=== PATIENT | female | born 1995 ===

== ENCOUNTER 2019-06-06 05:37 | Inpatient (IN) | payer OTHER ==
[~2019-06-06 05:37] MED LIST: Citric Acid/Sodium Citrate Solution 30 ML Cup PO ONE; Oxytocin/0.9 % Sodium Chloride 30 UNIT/500 ML BAG IV SCH; Sodium Chloride 0.9% 10 ML SDV IV PRN; Sodium Chloride 0.9% 10 ML Syringe FLUSH PRN; Sodium Chloride 0.9% 2.5 ML Syringe FLUSH PRN; ceFAZolin 2 GM in Premix Bag 1 BAG IV ONE
[2019-06-06] MEDS: Lactated Ringers 1,000 ML IV SCH ×3 (06:02→07:50)
[2019-06-06] MEDS ORDERED: Citric Acid/Sodium Citrate Solution 30 ML Cup ONE (07:13)
[2019-06-06] MEDS ORDERED: ceFAZolin/Dextrose,Iso-Osmotic 2 GM/50 ML Duplex Bag IV ONE (07:26)
[2019-06-06] MEDS ORDERED: Phenylephrine 1% 10 MG/ML SDV ONE (07:29)
[2019-06-06] MEDS ORDERED: Oxytocin 10 Units/1 ML SDV ONE (07:29)
[2019-06-06] MEDS ORDERED: Ondansetron 4 MG/2 ML SDV ONE (07:29)
[2019-06-06] MEDS ORDERED: Morphine PF 10 MG/10 ML SDV ONE (07:34)
--- NOTE | 2019-06-06 07:43 | PCM.PREANE ---
Preanesthetic Assessment - Anesthesia/Transfusion/Family Hx Anesthesia History: Prior Anesthesia Without Reaction (prior c section with spinal 17 mo ago) Family History of Anesthesia Reaction: No Transfusion History: No Prior Transfusion(s) - Review of Systems General: No Symptoms Pulmonary: No Symptoms Cardiovascular: No Symptoms Gastrointestinal: No Symptoms Neurological: No Symptoms Other: Reports: None - Physical Assessment Height: 5 ft 4 in Weight: 78.018 kg ASA Class: 2 Mental Status: Alert & Oriented x3 Airway Class: Mallampati = 2 Dentition: Reports: Normal Dentition ROM/Head Extension: Full Lungs: Clear to Auscultation, Normal Respiratory Effort Cardiovascular: Regular Rate, Regular Rhythm - Lab Values: Laboratory Last Values WBC 10.29 K/uL (4.0-11.0) 06/05/19 09:25 RBC 3.74 M/uL (4.30-5.90) L 06/05/19 09:25 Hgb 11.7 g/dL (12.0-16.0) L 06/05/19 09:25 Hct 34.9 % (36.0-46.0) L 06/05/19 09:25 MCV 93.3 fL (80.0-98.0) 06/05/19 09:25 MCH 31.3 pg (27.0-32.0) 06/05/19 09:25 MCHC 33.5 g/dL (31.0-37.0) 06/05/19 09:25 RDW Std Deviation 42.7 fl (28.0-62.0) 06/05/19 09:25 RDW Coeff of Maddie 13 % (11.0-15.0) 06/05/19 09:25 Plt Count 251 K/uL (150-400) 06/05/19 09:25 MPV 9.60 fL (7.40-12.00) 06/05/19 09:25 Nucleated RBC % 0.0 /100WBC 06/05/19 09:25 Nucleated RBCs # 0 K/uL 06/05/19 09:25 Blood Type A POSITIVE 06/05/19 09:25 Antibody Screen NEGATIVE 06/05/19 09:25 - Allergies Allergies/Adverse Reactions: Allergies Allergy/AdvReac Type Severity Reaction Status Date / Time No Known Allergies Allergy Verified 05/30/19 14:22 - Anesthesia Plan Pre-Op Medication Ordered: Antacids - Acknowledgements Anesthesia Type Planned: Spinal Pt an Appropriate Candidate for the Planned Anesthesia: Yes Alternatives and Risks of Anesthesia Discussed w Pt/Guardian: Yes Pt/Guardian Understands and Agrees with Anesthesia Plan: Yes Additional Comments: PMH: none other than PLAN: spinal with intrathecal duramorph PreAnesthesia Questionnaire HEENT History: Reports: None Cardiovascular History: Reports: None Respiratory History: Reports: None Gastrointestinal History: Reports: Other (See Below) Other Gastrointestinal History: occasional heartburn with Genitourinary History: Reports: UTI, Recurrent PATTERN FITTER History: Reports: Musculoskeletal History: Reports: Fracture Other Musculoskeletal History: hx fx hip Neurological History: Reports: Concussion Psychiatric History: Reports: None Endocrine/Metabolic History: Reports: None Hematologic History: Reports: None Immunologic History: Reports: None Oncologic (Cancer) History: Reports: None Dermatologic History: Reports: None - Infectious Disease History Infectious Disease History: Reports: Chicken Pox - Past Surgical History Head Surgeries/Procedures: Reports: None HEENT Surgical History: Reports: None Cardiovascular Surgical History: Reports: None Respiratory Surgical History: Reports: None GI Surgical History: Reports: None Female Surgical History: Reports: Section Endocrine Surgical History: Reports: None Neurological Surgical History: Reports: None Musculoskeletal Surgical History: Reports: None Oncologic Surgical History: Reports: None Dermatological Surgical History: Reports: None - SUBSTANCE USE Smoking Status *Q: Never Smoker Second Hand Smoke Exposure: No Recreational Drug Use History: No - HOME MEDS Home Medications: Home Meds [place]-3S/DHA/Epa/Fish Oil [Fish Oil [place]-3 Softgel] 1 tab PO DAILY 05/30/19 [ History] PNV95/Ferrous Fumarate/FA [ Vitamin Tablet] 1 tab PO DAILY 05/30/19 [ History] - CURRENT (IN HOUSE) MEDS Current Meds: Current Medications Lactated Ringer's (Ringers, Lactated) 1,000 mls @ 500 mls/hr IV BOLUS STANLEY Last Admin: 06/06/19 07:07 Dose: 999 mls/hr Oxytocin/Sodium Chloride (Oxytocin 30 Unit/500 Ml-Ns) 30 unit in 500 mls @ 250 mls/hr IV TITRATE STANLEY Sodium Chloride (Saline Flush) 10 ml FLUSH ASDIRECTED PRN PRN Reason: Keep Vein Open Sodium Chloride (Saline Flush) 2.5 ml FLUSH ASDIRECTED PRN PRN Reason: Keep Vein Open Sodium Chloride (Normal Saline) 10 ml IV ASDIRECTED PRN PRN Reason: IV Use Discontinued Medications Cefazolin Sodium/Dextrose (Ancef) Confirm Administered Dose 2 gm IV .STK-MED ONE Stop: 06/06/19 07:27 Citric Acid/Sodium Citrate (Bicitra Solution) 30 ml PO ONETIME ONE Stop: 06/05/19 08:51 Citric Acid/Sodium Citrate (Bicitra Solution) Confirm Administered Dose 30 ml .ROUTE .STK-MED ONE Stop: 06/06/19 07:14 Cefazolin Sodium/Dextrose 2 gm (/ Premix) 50 mls @ 100 mls/hr IV ONETIME ONE Stop: 06/05/19 09:19 Morphine Sulfate (Duramorph Pf) Confirm Administered Dose 10 mg .ROUTE .STK-MED ONE Stop: 06/06/19 07:35 Ondansetron HCl (Zofran) Confirm Administered Dose 4 mg .ROUTE .STK-MED ONE Stop: 06/06/19 07:30 Oxytocin (Pitocin) Confirm Administered Dose 30 unit .ROUTE .STK-MED ONE Stop: 06/06/19 07:30 Phenylephrine HCl (Thomas-Synephrine) Confirm Administered Dose 10 mg .ROUTE .STK- MED ONE Stop: 06/06/19 07:30
[2019-06-06] MEDS ORDERED: fentaNYL 100 MCG/2 ML SDV IVPUSH PRN (07:44)
[2019-06-06] MEDS ORDERED: Acetaminophen/oxyCODONE 325-5 MG Tab PO PRN ×2 (07:44→09:12)
[2019-06-06] MEDS ORDERED: Nalbuphine 10 MG/1 ML Vial IVPUSH PRN (07:44)
[2019-06-06] MEDS ORDERED: Octyl 2-Cyanoacrylate 1 Tube ONE (09:06)
[2019-06-06] MEDS ORDERED: Lanolin 100% Cream 7 GM Tube TOP PRN (09:12)
[2019-06-06] MEDS ORDERED: diphenhydrAMINE 50 MG/ML SDV IVPUSH PRN (09:12)
[2019-06-06] MEDS ORDERED: Ondansetron 4 MG/2 ML SDV IVPUSH PRN (09:12)
[2019-06-06] MEDS ORDERED: Bisacodyl 10 MG Supp RECTAL PRN (09:12)
[2019-06-06] MEDS: Ketorolac 30 MG/ML SDV IVPUSH SCH ×4 (09:15→21:14)
[2019-06-06] MEDS ORDERED: Lactated Ringers 1,000 ML IV SCH (09:15)
--- NOTE | 2019-06-06 09:15 | PCM.LDHP ---
L&D History of Present Illness - General Date of Service: 06/06/19 Admit Problem/Dx: Patient Status Order with Admit Dx/Problem 06/05/19 08:50 Patient Status [ADT] Routine 06/06/19 09:12 Patient Status [ADT] Routine Admission Diagnosis/Problem Admission Diagnosis/Problem Source of Information: Patient History Limitations: Reports: No Limitations - History of Present Illness Improves with: Reports: None Worsens with: Reports: None Associated Symptoms: Reports: N - Related Data Allergies/Adverse Reactions: Allergies Allergy/AdvReac Type Severity Reaction Status Date / Time No Known Allergies Allergy Verified 05/30/19 14:22 Home Medications: Home Meds [place]-3S/DHA/Epa/Fish Oil [Fish Oil [place]-3 Softgel] 1 tab PO DAILY 05/30/19 [ History] PNV95/Ferrous Fumarate/FA [ Vitamin Tablet] 1 tab PO DAILY 05/30/19 [ History] Past Medical History HEENT History: Reports: None Cardiovascular History: Reports: None Respiratory History: Reports: None Gastrointestinal History: Reports: Other (See Below) Other Gastrointestinal History: occasional heartburn with Genitourinary History: Reports: UTI, Recurrent [employer]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: Musculoskeletal History: Reports: Fracture Other Musculoskeletal History: hx fx hip Neurological History: Reports: Concussion Psychiatric History: Reports: None Endocrine/Metabolic History: Reports: None Hematologic History: Reports: None Immunologic History: Reports: None Oncologic (Cancer) History: Reports: None Dermatologic History: Reports: None - Infectious Disease History Infectious Disease History: Reports: Chicken Pox - Past Surgical History Head Surgeries/Procedures: Reports: None HEENT Surgical History: Reports: None Cardiovascular Surgical History: Reports: None Respiratory Surgical History: Reports: None GI Surgical History: Reports: None Female Surgical History: Reports: Section Endocrine Surgical History: Reports: None Neurological Surgical History: Reports: None Musculoskeletal Surgical History: Reports: None Oncologic Surgical History: Reports: None Dermatological Surgical History: Reports: None Social & Family History - Family History Family Medical History: Noncontributory - Tobacco Use Smoking Status *Q: Never Smoker Second Hand Smoke Exposure: No - Caffeine Use Caffeine Use: Reports: Coffee, Energy Drinks, Soda, Tea - Recreational Drug Use Recreational Drug Use: No Drug Use in Last 12 Months: No H&P Review of Systems - Review of Systems: Review Of Systems: See Below General: Reports: No Symptoms HEENT: Reports: No Symptoms Pulmonary: Reports: No Symptoms Cardiovascular: Reports: No Symptoms Gastrointestinal: Reports: No Symptoms Genitourinary: Reports: No Symptoms Musculoskeletal: Reports: No Symptoms Skin: Reports: No Symptoms Psychiatric: Reports: No Symptoms Neurological: Reports: No Symptoms Hematologic/Lymphatic: Reports: No Symptoms Immunologic: Reports: No Symptoms L&D Exam - Exam Exam: See Below - Vital Signs Weight: 78.018 kg - OB Specific Contraction Intensity: Mild Movement: Active Heart Tones: Present Presentation: Vertex - Guillory Score Guillory Score Cervix Position: Midposition Guillory Score Consistency: Medium Guillory Score Effacement: 31-50% Guillory Score Dilation: 1-2 cm Guillory Score 's Station: -2 Guillory Score Total: 5 - Exam General: Alert, Oriented HEENT: PERRLA, Conjunctiva Clear, EACs Clear, EOMI, Hearing Intact, Mucosa Moist & [place], Nares Patent, Normal Nasal Septum, Posterior Pharynx Clear, TMs Clear Neck: Supple, Trachea Midline Lungs: Clear to Auscultation, Normal Respiratory Effort Cardiovascular: Regular Rate, Regular Rhythm GI/Abdominal Exam: Normal Bowel Sounds, Soft, Non-Tender, No Organomegaly, No Distention, No Abnormal Bruit, No Mass, Pelvis Stable Rectal Exam: Normal Exam, Normal Rectal Tone Genitourinary: Normal external exam, Normal bimanual exam, Normal speculum exam Back Exam: Normal Inspection, Full Range of Motion Extremities: Normal Inspection, Normal Range of Motion, Non-Tender, No Pedal Edema, Normal Capillary Refill Skin: Warm, Dry, Intact Neurological: Cranial Nerves Intact, Reflexes Equal Bilateral Psychiatric: Alert, Normal Affect, Normal Mood - Patient Data Lab Results Last 24 hrs: Laboratory Results - last 24 hr 06/05/19 06/05/19 Range/Units 09:25 09:25 WBC 10.29 (4.0-11.0) K/uL RBC 3.74 L (4.30-5.90) M/uL Hgb 11.7 L (12.0-16.0) g/dL Hct 34.9 L (36.0-46.0) % MCV 93.3 (80.0-98.0) fL MCH 31.3 (27.0-32.0) pg MCHC 33.5 (31.0-37.0) g/dL RDW Std Deviation 42.7 (28.0-62.0) fl RDW Coeff of Maddie 13 (11.0-15.0) % Plt Count 251 (150-400) K/uL MPV 9.60 (7.40-12.00) fL Nucleated RBC % 0.0 /100WBC Nucleated RBCs # 0 K/uL Blood Type A POSITIVE Antibody Screen NEGATIVE Result Diagrams: 06/05/19 09:25 Problem List Initiated/Reviewed/Updated: Yes Orders Last 24hrs: Active Orders 24 hr Category Date Time Status Patient Status [ADT] Routine ADT 06/06/19 09:12 Ordered Ambulate [RC] PER UNIT ROUTINE Care 06/06/19 09:12 Ordered Antiembolic Devices [RC] PER UNIT ROUTINE Care 06/06/19 09:12 Ordered Bradycardia-Neuroaxis Duramorp [RC] ROUTINE Care 06/06/19 07:43 Active Communication Order [RC] PER UNIT ROUTINE Care 06/06/19 09:12 Ordered Communication Order [RC] PER UNIT ROUTINE Care 06/06/19 09:12 Ordered Communication Order [RC] Per Unit Routine Care 06/06/19 09:12 Ordered Hypertension-Neuroaxis Duramor [RC] ROUTINE Care 06/06/19 07:43 Active Hypotension-Neuroaxis Duramorp [RC] ROUTINE Care 06/06/19 07:43 Active May Shower [RC] ASDIRECTED Care 06/06/19 09:12 Ordered Oxygen Therapy [RC] PER UNIT ROUTINE Care 06/06/19 07:44 Active Procedure Site Prep Instruct [RC] ASDIRECTED Care 06/05/19 08:50 Active RT Incentive Spirometry [RC] Q2HWA Care 06/06/19 09:12 Ordered Up ad Hazel [RC] ASDIRECTED Care 06/05/19 08:50 Active Vital Signs [RC] PER UNIT ROUTINE Care 06/05/19 08:50 Active Vital Signs [RC] PER UNIT ROUTINE Care 06/06/19 09:12 Ordered Vital Signs [RC] Q1H Care 06/06/19 07:44 Active HEMOGLOBIN/HEMATOCRIT,HH [HEME] Timed Lab 06/07/19 05:11 Ordered Acetaminophen/oxyCODONE [Percocet 325-5 MG] Med 06/06/19 07:44 Active 1 tab PO ONETIME PRN Acetaminophen/oxyCODONE [Percocet 325-5 MG] Med 06/06/19 09:12 Ordered 1 tab PO Q4H PRN Acetaminophen/oxyCODONE [Percocet 325-5 MG] Med 06/06/19 09:12 Ordered 2 tab PO Q4H PRN Bisacodyl [Dulcolax] Med 06/06/19 09:12 Ordered 10 mg RECTAL ONETIME PRN Docusate Sodium [Colace] Med 06/06/19 21:00 Ordered 100 mg PO BID Ibuprofen [Motrin] Med 06/06/19 09:12 Ordered 800 mg PO Q8H PRN Ketorolac [Toradol] Med 06/06/19 09:15 Ordered 30 mg IVPUSH Q6H Lactated Ringers @ 125 MLS/HR(1000ml) Med 06/06/19 09:15 Ordered Lactated Ringers [Ringers, Lactated] 1,000 ml IV ASDIRECTED Lactated Ringers [Ringers, Lactated] 1,000 ml Med 06/05/19 09:00 Active IV BOLUS Lanolin [Lansinoh HPA] Med 06/06/19 09:12 Ordered See Dose Instructions TOP ASDIRECTED PRN Nalbuphine [Nubain] Med 06/06/19 07:44 Active 2.5 mg IVPUSH Q3H PRN Ondansetron [Zofran] Med 06/06/19 09:12 Ordered 4 mg IVPUSH Q4H PRN Oxytocin/0.9 % Sodium Chloride [Oxytocin 30 Unit/500 ML Med 06/05/19 09:00 Active -NS] 30 unit in 500 ml IV TITRATE Sodium Chloride 0.9% [Normal Saline] Med 06/05/19 08:50 Active 10 ml IV ASDIRECTED PRN Sodium Chloride 0.9% [Saline Flush] Med 06/05/19 08:50 Active 10 ml FLUSH ASDIRECTED PRN Sodium Chloride 0.9% [Saline Flush] Med 06/05/19 08:50 Active 2.5 ml FLUSH ASDIRECTED PRN diphenhydrAMINE [Benadryl] Med 06/06/19 09:12 Ordered 25 mg IVPUSH Q6H PRN fentaNYL [Sublimaze] Med 06/06/19 07:44 Active 50 mcg IVPUSH Q5M PRN AN Neuroaxis Duramorph Precaution Reflex [OM.PC] PER Ot 06/06/19 07:45 Ordered UNIT ROUTINE AN Neuroaxis Duramorph Precaution Reflex [OM.PC] PER Ot 06/07/19 07:45 Ordered UNIT ROUTINE Assess Lochia [WOMSER] Per Unit Routine Ot 06/06/19 09:12 Ordered Assess Uterine Involution [WOMSER] Per Unit Routine Ot 06/06/19 09:12 Ordered Breast Pump [WOMSER] Per Unit Routine Ot 06/06/19 09:12 Ordered Peripheral IV Discontinue [OM.PC] Routine Ot 06/06/19 09:12 Ordered Peripheral IV Insertion Adult [OM.PC] Routine Ot 06/05/19 08:50 Ordered Schedule Procedure [COMM] Per Unit Routine Ot 06/05/19 08:50 Ordered Sequential Compression Device [OM.PC] Per Unit Routine Ot 06/06/19 09:12 Ordered Resuscitation Status Routine Resus Stat 06/05/19 08:50 Ordered Medication Orders Fentanyl (Sublimaze) 50 mcg IVPUSH Q5M PRN PRN Reason: Pain (severe 7-10) Stop: 06/07/19 07:44 Lactated Ringer's (Ringers, Lactated) 1,000 mls @ 500 mls/hr IV BOLUS STANLEY Last Admin: 06/06/19 07:50 Dose: 500 mls/hr Infusion: 06/06/19 07:50 Dose: 999 mls/hr Admin: 06/06/19 07:07 Dose: 999 mls/hr Infusion: 06/06/19 07:03 Dose: 999 mls/hr Admin: 06/06/19 06:02 Dose: 999 mls/hr Oxytocin/Sodium Chloride (Oxytocin 30 Unit/500 Ml-Ns) 30 unit in 500 mls @ 250 mls/hr IV TITRATE STANLEY Nalbuphine HCl (Nubain) 2.5 mg IVPUSH Q3H PRN PRN Reason: Pruritis Stop: 06/07/19 07:44 Oxycodone/Acetaminophen (Percocet 325-5 Mg) 1 tab PO ONETIME PRN PRN Reason: Pain (moderate 4-6) Sodium Chloride (Saline Flush) 10 ml FLUSH ASDIRECTED PRN PRN Reason: Keep Vein Open Sodium Chloride (Saline Flush) 2.5 ml FLUSH ASDIRECTED PRN PRN Reason: Keep Vein Open Sodium Chloride (Normal Saline) 10 ml IV ASDIRECTED PRN PRN Reason: IV Use Assessment/Plan Comment:: IUP39+ wks admitted for elective repeat C/section.
--- NOTE | 2019-06-06 09:17 | PCM.OPNOTE ---
- General Post-Op/Procedure Note Date of Surgery/Procedure: 06/06/19 Operative Procedure(s): Repeat C/section. Pre Op Diagnosis: IUP 39 wks previous C/section. Post-Op Diagnosis: Same Anesthesia Technique: Spinal Primary Surgeon: Randy Mendenhall EBL in mLs: 650 Complications: None Condition: Good
--- NOTE | 2019-06-06 12:29 | OR ---
SURGEON: Randy Mendenhall MD DATE OF PROCEDURE: 06/06/2019 PREOPERATIVE DIAGNOSES: Intrauterine at 39 weeks plus, previous section, admitted for elective repeat section. POSTOPERATIVE DIAGNOSES: Intrauterine at 39 weeks plus, previous section, admitted for elective repeat section. OPERATION PERFORMED: Repeat low-transverse section, PRIMARY SURGEON: Randy Mendenhall MD. WRIST HEMMER: Radha Chow. ANESTHESIA: Spinal. ESTIMATED BLOOD LOSS: 650 mL. COMPLICATIONS: None. FINDING: Male fetus, score reported to be 8 and 9. The weight is not available. INDICATION FOR SURGERY: This patient is 24-year-old. She had a previous section. She is admitted for elective repeat section. She had no complication with her care. PROCEDURE IN DETAIL: The patient was brought to the OR, properly identified, and after adequate level of spinal anesthesia with a Diez catheter in the bladder, the patient was prepped and draped in sterile fashion as usual. A low-transverse Pfannenstiel skin incision done. Tanisha's fascia and rectus fascia were opened in direction of the incision. The 2 recti muscles were . Peritoneal cavity was entered. Bladder flap was raised in the usual manner, and then, a low transverse uterine incision was done and extended manually with hand. Fetus was delivered, handed to the resuscitating team and fetus cried immediately. score reported to be 8 and 9. Weight is not available. The placenta delivered spontaneous, complete, and intact, and repair of the lower uterine segments is done with 2-0 Vicryl continuous interlocking in 2 layers. Reperitonealization done with 3-0 Vicryl continuous. The peritoneal cavity evacuated completely from all blood and blood clot, and closed with 3-0 Vicryl continuous. The rectus fascia was closed with #1 PDS continuous, the Tanisha's fascia with 3-0 Vicryl continuous, and the skin closed with 3-0 on a Amadeo needle in a subcuticular fashion with Dermabond. Instrument and sponge count was correct. The patient tolerated the procedure well, went to recovery room in stable general condition. DEANDRE / ASAEL /[id number]
[2019-06-06] MEDS: Docusate Sodium 100 MG Cap PO SCH (21:14)
[2019-06-07] MEDS: Ketorolac 30 MG/ML SDV IVPUSH SCH ×2 (03:21→09:31)
--- NOTE | 2019-06-07 07:12 | PCM48HPAN ---
Post Anesthesia Note - EVALUATION WITHIN 48HRS OF ANESTHETIC Vital Signs in Normal Range: Yes Patient Participated in Evaluation: Yes Respiratory Function Stable: Yes Airway Patent: Yes Cardiovascular Function Stable: Yes Hydration Status Stable: Yes Pain Control Satisfactory: Yes Nausea and Vomiting Control Satisfactory: Yes Mental Status Recovered: Yes Vital Signs: Last Vital Signs Temp 98.6 F 06/07/19 04:10 Pulse 88 06/07/19 06:00 Resp 17 06/07/19 06:00 BP 112/70 06/07/19 04:10 Pulse Ox 96 06/07/19 06:00
--- NOTE | 2019-06-07 07:56 | PCM.POSTAN ---
POST ANESTHESIA ASSESSMENT - MENTAL STATUS Mental Status: Alert, Oriented - VITAL SIGNS Vital Signs: Last Vital Signs Temp 98.6 F 06/07/19 04:10 Pulse 88 06/07/19 06:00 Resp 17 06/07/19 06:00 BP 112/70 06/07/19 04:10 Pulse Ox 96 06/07/19 06:00 - RESPIRATORY Respiratory Status: Respiratory Rate WNL, Airway Patent, O2 Saturation Stable - CARDIOVASCULAR CV Status: Pulse Rate WNL, Blood Pressure Stable - GASTROINTESTINAL GI Status: No Symptoms - POST OP HYDRATION Hydration Status: Adequate & Stable - OBSERVATIONS Free Text/Narrative:: exam performed yesterday prior to PACU nurse turning care over to OB nursing staff
--- NOTE | 2019-06-07 08:54 | PCM.PNPP ---
- General Info Date of Service: 06/07/19 Functional Status: Reports: Pain Controlled - Review of Systems General: Reports: No Symptoms HEENT: Reports: No Symptoms Pulmonary: Reports: No Symptoms Cardiovascular: Reports: No Symptoms Gastrointestinal: Reports: No Symptoms Genitourinary: Reports: No Symptoms Musculoskeletal: Reports: No Symptoms Skin: Reports: No Symptoms Neurological: Reports: No Symptoms Psychiatric: Reports: No Symptoms - General Info Date of Service: 06/07/19 - Patient Data Vital Signs - Most Recent: Last Vital Signs Temp 36.8 C 06/07/19 08:05 Pulse 82 06/07/19 08:05 Resp 15 06/07/19 08:05 BP 110/62 06/07/19 08:05 Pulse Ox 93 L 06/07/19 08:05 Weight - Most Recent: 78.018 kg I&O - Last 24 Hours: Intake & Output 06/06/19 06/07/19 06/07/19 22:59 06:59 14:59 Intake Total 480 Output Total 1300 3100 Balance -820 -3100 Lab Results - Last 24 Hours: Laboratory Results - last 24 hr 06/07/19 Range/Units 05:34 Hgb 11.5 L (12.0-16.0) g/dL Hct 34.7 L (36.0-46.0) % Med Orders - Current: Current Medications Bisacodyl (Dulcolax) 10 mg RECTAL ONETIME PRN PRN Reason: Constipation Diphenhydramine HCl (Benadryl) 25 mg IVPUSH Q6H PRN PRN Reason: Itching or Nausea Last Admin: 06/06/19 21:17 Dose: 25 mg Docusate Sodium (Colace) 100 mg PO BID [facility] Last Admin: 06/06/19 21:14 Dose: 100 mg Emollient Ointment (Lansinoh Hpa) 0 gm TOP ASDIRECTED PRN PRN Reason: Sore Nipples Lactated Ringer's (Ringers, Lactated) 1,000 mls @ 500 mls/hr IV BOLUS [facility] Last Admin: 06/06/19 07:50 Dose: 500 mls/hr Oxytocin/Sodium Chloride (Oxytocin 30 Unit/500 Ml-Ns) 30 unit in 500 mls @ 250 mls/hr IV TITRATE [facility] Lactated Ringer's (Ringers, Lactated) 1,000 mls @ 125 mls/hr IV ASDIRECTED [facility] Last Admin: 06/06/19 15:10 Dose: 125 mls/hr Ibuprofen (Motrin) 800 mg PO Q8H PRN PRN Reason: mild pain or fever Ketorolac Tromethamine (Toradol) 30 mg IVPUSH Q6H [facility] Stop: 06/07/19 09:16 Last Admin: 06/07/19 03:21 Dose: 30 mg Ondansetron HCl (Zofran) 4 mg IVPUSH Q4H PRN PRN Reason: Nausea/Vomiting Oxycodone/Acetaminophen (Percocet 325-5 Mg) 1 tab PO ONETIME PRN PRN Reason: Pain (moderate 4-6) Oxycodone/Acetaminophen (Percocet 325-5 Mg) 1 tab PO Q4H PRN PRN Reason: Pain (moderate 4-6) Oxycodone/Acetaminophen (Percocet 325-5 Mg) 2 tab PO Q4H PRN PRN Reason: Pain (moderate 4-6) Sodium Chloride (Saline Flush) 10 ml FLUSH ASDIRECTED PRN PRN Reason: Keep Vein Open Sodium Chloride (Saline Flush) 2.5 ml FLUSH ASDIRECTED PRN PRN Reason: Keep Vein Open Sodium Chloride (Normal Saline) 10 ml IV ASDIRECTED PRN PRN Reason: IV Use Discontinued Medications Cefazolin Sodium/Dextrose (Ancef) Confirm Administered Dose 2 gm IV .STK-MED ONE Stop: 06/06/19 07:27 Citric Acid/Sodium Citrate (Bicitra Solution) 30 ml PO ONETIME ONE Stop: 06/05/19 08:51 Last Admin: 06/06/19 07:36 Dose: 30 ml Citric Acid/Sodium Citrate (Bicitra Solution) Confirm Administered Dose 30 ml .ROUTE .STK-MED ONE Stop: 06/06/19 07:14 Last Admin: 06/06/19 11:06 Dose: Not Given Fentanyl (Sublimaze) 50 mcg IVPUSH Q5M PRN PRN Reason: Pain (severe 7-10) Stop: 06/07/19 07:44 Cefazolin Sodium/Dextrose 2 gm (/ Premix) 50 mls @ 100 mls/hr IV ONETIME ONE Stop: 06/05/19 09:19 Last Admin: 06/06/19 11:07 Dose: Not Given Morphine Sulfate (Duramorph Pf) Confirm Administered Dose 10 mg .ROUTE .STK-MED ONE Stop: 06/06/19 07:35 Nalbuphine HCl (Nubain) 2.5 mg IVPUSH Q3H PRN PRN Reason: Pruritis Stop: 06/07/19 07:44 Last Admin: 06/06/19 10:24 Dose: 2.5 mg Octyl Cyanoacrylate (Dermabond Advance) Confirm Administered Dose 1 applic .ROUTE .STK-MED ONE Stop: 06/06/19 09:07 Last Admin: 06/06/19 11:07 Dose: Not Given Ondansetron HCl (Zofran) Confirm Administered Dose 4 mg .ROUTE .STK-MED ONE Stop: 06/06/19 07:30 Oxytocin (Pitocin) Confirm Administered Dose 30 unit .ROUTE .STK-MED ONE Stop: 06/06/19 07:30 Phenylephrine HCl (Thomas-Synephrine) Confirm Administered Dose 10 mg .ROUTE .STK- MED ONE Stop: 06/06/19 07:30 - Infant Interaction Infant Disposition, : in Room with Family Infant Interaction: Holding Infant Infant Feeding: Attempted ; Nursed Fair/Poor Support Person: - Recovery Exam Fundal Tone: Firm Fundal Level: 2 Fingerbreadths Below Umbilicus Fundal Placement: Midline Lochia Amount: Scant Lochia Color: Rubra/Red Perineum Description: Intact, Minimal Bruising/Swelling Episiotomy/Laceration: None Bladder Status: Indwelling Catheter in Place Urinary Elimination: Indwelling Catheter - Exam General: Alert, Oriented HEENT: Pupils Equal Neck: Supple Lungs: Clear to Auscultation, Normal Respiratory Effort Cardiovascular: Regular Rate, Regular Rhythm GI/Abdominal Exam: Normal Bowel Sounds, Soft, Non-Tender, No Organomegaly, No Distention, No Abnormal Bruit, No Mass, Pelvis Stable Extremities: Normal Inspection, Normal Range of Motion, Non-Tender, No Pedal Edema, Normal Capillary Refill Skin: Warm, Dry, Intact Wound/Incisions: Healing Well Neurological: No New Focal Deficit Psy/Mental Status: Alert, Normal Affect, Normal Mood - Problem List Review Problem List Initiated/Reviewed/Updated: Yes - My Orders Last 24 Hours: My Active Orders 06/06/19 09:12 Patient Status [ADT] Routine Ambulate [RC] PER UNIT ROUTINE Antiembolic Devices [RC] PER UNIT ROUTINE Communication Order [RC] PER UNIT ROUTINE Communication Order [RC] PER UNIT ROUTINE Communication Order [RC] Per Unit Routine May Shower [RC] ASDIRECTED RT Incentive Spirometry [RC] Q2HWA Acetaminophen/oxyCODONE [Percocet 325-5 MG] 1 tab PO Q4H PRN Acetaminophen/oxyCODONE [Percocet 325-5 MG] 2 tab PO Q4H PRN Bisacodyl [Dulcolax] 10 mg RECTAL ONETIME PRN Ibuprofen [Motrin] 800 mg PO Q8H PRN Lanolin [Lansinoh HPA] See Dose Instructions TOP ASDIRECTED PRN Ondansetron [Zofran] 4 mg IVPUSH Q4H PRN diphenhydrAMINE [Benadryl] 25 mg IVPUSH Q6H PRN Assess Lochia [WOMSER] Per Unit Routine Assess Uterine Involution [WOMSER] Per Unit Routine Breast Pump [WOMSER] Per Unit Routine Peripheral IV Discontinue [OM.PC] Routine Sequential Compression Device [OM.PC] Per Unit Routine 06/06/19 09:15 Ketorolac [Toradol] 30 mg IVPUSH Q6H Lactated Ringers [Ringers, Lactated] 1,000 ml IV ASDIRECTED 06/06/19 21:00 Docusate Sodium [Colace] 100 mg PO BID - Assessment Assessment:: status post section postoperative day #1 patient is doing well vital sir control onnd voiding without any problem planning to discharge her home in a.m. - Plan Plan:: [id number] wks admitted for elective repeat C/section.
[2019-06-07] MEDS: Docusate Sodium 100 MG Cap PO SCH ×2 (09:31→21:14)
[2019-06-07] MEDS: Acetaminophen/oxyCODONE 325-5 MG Tab PO PRN (16:00)
[2019-06-07] MEDS: Ibuprofen 800 MG Tab PO PRN (21:13)
[2019-06-08] MEDS: Acetaminophen/oxyCODONE 325-5 MG Tab PO PRN ×2 (05:13→10:21)
[2019-06-08] MEDS: Ibuprofen 800 MG Tab PO PRN (08:13)
[2019-06-08] MEDS: Docusate Sodium 100 MG Cap PO SCH (08:13)
--- NOTE | 2019-06-08 10:10 | PCM.DCSUM1 ---
Discharge Summary - Hospital Course Diagnosis: Stroke: No - Discharge Data Discharge Date: 06/08/19 Discharge Disposition: Home, Self-Care 01 Condition: Good - Referral to Home Health Primary Care Physician: PCP None - Patient Summary/Data Operative Procedure(s) Performed: Repeat C/section. - Patient Instructions Diet: Usual Diet as Tolerated Activity: As Tolerated Driving: Do Not Drive Showering/Bathing: May Shower Wound/Incision Care: Keep Operative Site/Wound Site Clean and Dry Notify Provider of: Fever, Increased Pain, Nausea and/or Vomiting - Discharge Plan Home Medications: Home Meds Pedro-3S/DHA/Epa/Fish Oil [Fish Oil Pedro-3 Softgel] 1 tab PO DAILY 05/30/19 [ History] PNV95/Ferrous Fumarate/FA [ Vitamin Tablet] 1 tab PO DAILY 05/30/19 [ History] Referrals: Randy Mendenhall MD [Physician] - 06/12/19 1:30 pm (6 week follow up appointment July 22, 2019 at 1045 am.) - Discharge Summary/Plan Comment DC Time >30 min.: Yes - General Info Date of Service: 06/08/19 Functional Status: Reports: Pain Controlled - Review of Systems General: Reports: No Symptoms HEENT: Reports: No Symptoms Pulmonary: Reports: No Symptoms Cardiovascular: Reports: No Symptoms Gastrointestinal: Reports: No Symptoms Genitourinary: Reports: No Symptoms Musculoskeletal: Reports: No Symptoms Skin: Reports: No Symptoms Neurological: Reports: No Symptoms Psychiatric: Reports: No Symptoms - Patient Data Vitals - Most Recent: Last Vital Signs Temp 36.3 C 06/08/19 07:25 Pulse 65 06/08/19 07:25 Resp 16 06/08/19 07:25 BP 104/57 L 06/08/19 07:25 Pulse Ox 96 06/08/19 07:25 Weight - Most Recent: 78.018 kg Med Orders - Current: Current Medications Bisacodyl (Dulcolax) 10 mg RECTAL ONETIME PRN PRN Reason: Constipation Diphenhydramine HCl (Benadryl) 25 mg IVPUSH Q6H PRN PRN Reason: Itching or Nausea Last Admin: 06/06/19 21:17 Dose: 25 mg Docusate Sodium (Colace) 100 mg PO BID [facility] Last Admin: 06/08/19 08:13 Dose: 100 mg Emollient Ointment (Lansinoh Hpa) 0 gm TOP ASDIRECTED PRN PRN Reason: Sore Nipples Last Admin: 06/07/19 23:55 Dose: 7 gm Lactated Ringer's (Ringers, Lactated) 1,000 mls @ 500 mls/hr IV BOLUS [facility] Last Admin: 06/06/19 07:50 Dose: 500 mls/hr Oxytocin/Sodium Chloride (Oxytocin 30 Unit/500 Ml-Ns) 30 unit in 500 mls @ 250 mls/hr IV TITRATE [facility] Lactated Ringer's (Ringers, Lactated) 1,000 mls @ 125 mls/hr IV ASDIRECTED [facility] Last Admin: 06/06/19 15:10 Dose: 125 mls/hr Ibuprofen (Motrin) 800 mg PO Q8H PRN PRN Reason: mild pain or fever Last Admin: 06/08/19 08:13 Dose: 800 mg Ondansetron HCl (Zofran) 4 mg IVPUSH Q4H PRN PRN Reason: Nausea/Vomiting Oxycodone/Acetaminophen (Percocet 325-5 Mg) 1 tab PO ONETIME PRN PRN Reason: Pain (moderate 4-6) Oxycodone/Acetaminophen (Percocet 325-5 Mg) 1 tab PO Q4H PRN PRN Reason: Pain (moderate 4-6) Last Admin: 06/07/19 21:12 Dose: 1 tab Oxycodone/Acetaminophen (Percocet 325-5 Mg) 2 tab PO Q4H PRN PRN Reason: Pain (moderate 4-6) Last Admin: 06/08/19 05:13 Dose: 2 tab Sodium Chloride (Saline Flush) 10 ml FLUSH ASDIRECTED PRN PRN Reason: Keep Vein Open Sodium Chloride (Saline Flush) 2.5 ml FLUSH ASDIRECTED PRN PRN Reason: Keep Vein Open Sodium Chloride (Normal Saline) 10 ml IV ASDIRECTED PRN PRN Reason: IV Use Discontinued Medications Cefazolin Sodium/Dextrose (Ancef) Confirm Administered Dose 2 gm IV .STK-MED ONE Stop: 06/06/19 07:27 Citric Acid/Sodium Citrate (Bicitra Solution) 30 ml PO ONETIME ONE Stop: 06/05/19 08:51 Last Admin: 06/06/19 07:36 Dose: 30 ml Citric Acid/Sodium Citrate (Bicitra Solution) Confirm Administered Dose 30 ml .ROUTE .STK-MED ONE Stop: 06/06/19 07:14 Last Admin: 06/06/19 11:06 Dose: Not Given Fentanyl (Sublimaze) 50 mcg IVPUSH Q5M PRN PRN Reason: Pain (severe 7-10) Stop: 06/07/19 07:44 Cefazolin Sodium/Dextrose 2 gm (/ Premix) 50 mls @ 100 mls/hr IV ONETIME ONE Stop: 06/05/19 09:19 Last Admin: 06/06/19 11:07 Dose: Not Given Ketorolac Tromethamine (Toradol) 30 mg IVPUSH Q6H [facility] Stop: 06/07/19 09:16 Last Admin: 06/07/19 09:31 Dose: 30 mg Morphine Sulfate (Duramorph Pf) Confirm Administered Dose 10 mg .ROUTE .STK-MED ONE Stop: 06/06/19 07:35 Nalbuphine HCl (Nubain) 2.5 mg IVPUSH Q3H PRN PRN Reason: Pruritis Stop: 06/07/19 07:44 Last Admin: 06/06/19 10:24 Dose: 2.5 mg Octyl Cyanoacrylate (Dermabond Advance) Confirm Administered Dose 1 applic .ROUTE .STK-MED ONE Stop: 06/06/19 09:07 Last Admin: 06/06/19 11:07 Dose: Not Given Ondansetron HCl (Zofran) Confirm Administered Dose 4 mg .ROUTE .STK-MED ONE Stop: 06/06/19 07:30 Oxytocin (Pitocin) Confirm Administered Dose 30 unit .ROUTE .STK-MED ONE Stop: 06/06/19 07:30 Phenylephrine HCl (Thomas-Synephrine) Confirm Administered Dose 10 mg .ROUTE .STK- MED ONE Stop: 06/06/19 07:30 - Exam General: Reports: Alert, Oriented HEENT: Reports: Pupils Equal, Pupils Reactive, EOMI, Mucous Membr. Moist/[place] Neck: Reports: Supple Lungs: Reports: Clear to Auscultation, Normal Respiratory Effort Cardiovascular: Reports: Regular Rate, Regular Rhythm GI/Abdominal Exam: Normal Bowel Sounds, Soft, Non-Tender, No Organomegaly, No Distention, No Abnormal Bruit, No Mass, Pelvis Stable (Female) Exam: Normal External Exam, Normal Speculum Exam, Normal Bimanual Exam Rectal (Female) Exam: Normal Exam, Normal Rectal Tone Back Exam: Reports: Normal Inspection, Full Range of Motion Extremities: Normal Inspection, Normal Range of Motion, Non-Tender, No Pedal Edema, Normal Capillary Refill Skin: Reports: Warm, Dry, Intact Wound/Incisions: Reports: Healing Well Neurological: Reports: No New Focal Deficit Psy/Mental Status: Reports: Alert, Normal Affect, Normal Mood
== END 2019-06-08 12:25 | disposition home or self-care (01) | DRG 788 ==
LOC: MW.OB 05:37
PROVIDERS: ADMIT Obstetrics & Gynecology; ATTEND Obstetrics & Gynecology
PROC: 10D00Z1 Extraction of Products of Conception, Low, Open Approach (ICD-10-PCS; principal; 2019-06-06)
DX: O34.211 Maternal care for low transverse scar from previous cesarean delivery (principal); Z3A.39 39 weeks gestation of pregnancy; Z37.0 Single live birth
CPT/HCPCS: 36415; 51702; 59025; 85014; 85018; 85027; 86850; 86900; 86901; A9270-GY; J0690; J1200; J1885; J2270; J2300; J2370; J2405; J2590; J7120